=== PATIENT | female | born 1950 | race Caucasian/White ===

== ENCOUNTER 2018-11-03 13:10 | Inpatient (IN) ==
[2018-11-03] MEDS ORDERED: ACETAMINOPHEN 325 MG TABLET PO PRN (16:24)
[2018-11-03] MEDS ORDERED: diphenhydrAMINE 50 MG/1 ML VIAL IV PRN (16:24)
[2018-11-03] MEDS ORDERED: MORPHINE 4 MG/1 ML VIAL IV PRN (16:24)
[2018-11-03] MEDS ORDERED: SODIUM CHLORIDE 0.9% 1,000 ML IV PRN (16:24)
[2018-11-03] MEDS ORDERED: FUROSEMIDE 20 MG/2 ML VIAL IV SCH (16:30)
[2018-11-03] MEDS ORDERED: traZODone 50 MG TABLET PO PRN (16:39)
[2018-11-03] MEDS ORDERED: ZALEPLON 5 MG CAPSULE PO PRN (16:39)
[2018-11-03] MEDS: SODIUM CHLORIDE 0.9% 1,000 ML IV SCH (17:24)
[2018-11-03 18:44] LABS: Apearance,Urine CLEAR (Clear); Bilirubin,Urine Negative (Negative); Blood, Urine Negative (Negative); Glucose,Urine (UA) Negative (Negative); Ketones,Urine Negative (Negative); Mucus,Urine Occasional /LPF (Occasional); Nitrite,Urine Negative (Negative); Protein,Urine Negative; RBC,Urine <1 /HPF (0-4); Urine Color Straw (Yellow); Urine Specific Gravity 1.011 (1.001-1.035); Urine Urobilinogen < 2.0 EU/DL (0.2-1.0); WBC,Urine 1 /HPF (0-6)
[2018-11-03] MEDS: DOCUSATE SODIUM 100 MG CAPSULE PO SCH (20:45)
[2018-11-04 03:45] LABS: Basophils % 0.6 % (0.0-0.8); Eosinophils # 0.1 10*3/uL (0.0-0.87); Eosinophils % 1.8 % (0.00-10.9); Hemoglobin 7.5 GM/DL (12.0-16.0); Immature Granulocytes Absolute 0.07 #; Lymphocytes # 1.9 10*3/uL (1.4-4.0); Lymphocytes % 26.4 % (21.3-54.2); Mean Corpuscular HGB Conc 31.3 GM/DL (32-36); Mean Corpuscular Hemoglobin 28 PG (27-34); Mean Corpuscular Volume 89.2 FL (87-102); Mean Platelet Volume 8.9 FL (9.6-12.0); Monocytes # 0.5 10*3/uL (0.11-0.8); Monocytes % 7.4 % (1.7-12.7); Neutrophils # 4.6 10*3/uL (1.4-7.4); Neutrophils % 62.8 % (38.7-73.9); Platelet Count 232 T/CUMM (130-400); Red Blood Count 2.69 MC/CUMM (3.8-5.5); Red Cell Distribution Width 17.4 % (9.3-17.3); White Blood Count 7.3 T/CUMM (4-12)
[2018-11-04 04:15] LABS: Albumin 2.1 G/DL (3.4-5.0); Bilirubin,Total 0.5 MG/DL (0.2-1.0); Calcium 7.5 MG/DL (8.5-10.1); Folate 15.5 NG/ML (5.4-24.0); Osmolality,Calculated 275.7 MOS/KG (273-304); Risk Ratio 2.17; Thyroid Stimulating Hormone 1.07 uIU/ml (0.358-3.74)
[2018-11-04 04:21] LABS: Alanine Aminotransferase 11 U/L (13-56); Albumin 2.1 G/DL (3.4-5.0); Alkaline Phosphatase 45 U/L (45-117); Aspartate Amino Transferase 9 U/L (0-37); Bilirubin,Direct < 0.100 MG/DL (0.0-0.20); Bilirubin,Indirect 0.3 MG/DL (0.0-1.0); Bilirubin,Total < 0.39 MG/DL (0.2-1.0)
[2018-11-04 04:22] LABS: % Iron Saturation 4.1 % (18-50); Ferritin 12.2 ng/ml (8-252)
[2018-11-04] MEDS: SODIUM CHLORIDE 0.9% 1,000 ML IV SCH ×2 (06:00→16:53)
[2018-11-04] MEDS ORDERED: PROPOFOL 500 MG/50 ML BOTTLE IV ONE (09:00)
[2018-11-04] MEDS ORDERED: LIDOCAINE 2% 5 ML VIAL ONE (09:00)
[2018-11-04] MEDS ORDERED: PANTOPRAZOLE 40 MG VIAL IV SCH (09:00)
[2018-11-04] MEDS: DOCUSATE SODIUM 100 MG CAPSULE PO SCH ×2 (10:04→20:49)
[2018-11-04 11:09] LABS: Hematocrit 26.2 VOL% (35.7-47.0); Hemoglobin 8.3 GM/DL (12.0-16.0)
[2018-11-04 11:45] LABS: Calcium 7.8 MG/DL (8.5-10.1); Osmolality,Calculated 277.4 MOS/KG (273-304); Potassium 3.8 MMOL/L (3.5-5.1)
[2018-11-04 14:04] LABS: Cyclic Citrull Peptide Interp Negative
[2018-11-04] MEDS ORDERED: IRON SUCROSE 200 MG in SODIUM CHLORIDE 0.9% 100 ML IV ONE (16:00)
[2018-11-04 16:16] LABS: Hematocrit 26.2 VOL% (35.7-47.0); Hemoglobin 8.2 GM/DL (12.0-16.0)
[2018-11-04] MEDS: FERROUS SULFATE 325 MG TABLET PO SCH ×2 (16:52→20:49)
[2018-11-04 22:22] LABS: Hematocrit 25.6 VOL% (35.7-47.0); Hemoglobin 7.9 GM/DL (12.0-16.0)
[2018-11-05 05:54] LABS: Basophils % 0.5 % (0.0-0.8); Eosinophils # 0.2 10*3/uL (0.0-0.87); Eosinophils % 3.4 % (0.00-10.9); Hematocrit 26.1 VOL% (35.7-47.0); Hemoglobin 7.9 GM/DL (12.0-16.0); Immature Granulocytes % 0.5 %; Immature Granulocytes Absolute 0.03 #; Lymphocytes # 1.4 10*3/uL (1.4-4.0); Lymphocytes % 22.2 % (21.3-54.2); Mean Corpuscular HGB Conc 30.3 GM/DL (32-36); Mean Corpuscular Hemoglobin 28 PG (27-34); Mean Corpuscular Volume 91.3 FL (87-102); Mean Platelet Volume 9.2 FL (9.6-12.0); Monocytes # 0.5 10*3/uL (0.11-0.8); Monocytes % 8.4 % (1.7-12.7); NRBC # 0.02 10*3/uL; Neutrophils # 4.1 10*3/uL (1.4-7.4); Platelet Count 262 T/CUMM (130-400); Red Blood Count 2.86 MC/CUMM (3.8-5.5); Red Cell Distribution Width 18.1 % (9.3-17.3); White Blood Count 6.2 T/CUMM (4-12)
[2018-11-05] MEDS: SODIUM CHLORIDE 0.9% 1,000 ML IV SCH (05:59)
[2018-11-05 06:14] LABS: Albumin 2.2 G/DL (3.4-5.0); Bilirubin,Total 0.4 MG/DL (0.2-1.0); Calcium 7.7 MG/DL (8.5-10.1); Osmolality,Calculated 274.5 MOS/KG (273-304); Potassium 3.3 MMOL/L (3.5-5.1); Total Protein 5.1 G/DL (6.4-8.3)
[2018-11-05] MEDS ORDERED: PANTOPRAZOLE 40 MG TABLET PO SCH ×2 (09:00)
[2018-11-05] MEDS ORDERED: POTASSIUM CHLORIDE 20 MEQ/15 ML UDCUP PO SCH (09:00)
[2018-11-05] MEDS: FERROUS SULFATE 325 MG TABLET PO SCH (09:29)
[2018-11-05] MEDS: DOCUSATE SODIUM 100 MG CAPSULE PO SCH (09:29)
[2018-11-05 12:12] VITALS: BP 144/77
[2018-11-09 13:09] LABS: Double Stranded DNA Antibodies 62.9 IU/ML
== END 2018-11-05 12:30 | disposition home or self-care (01) | DRG 812 ==
LOC: SUATTDRO 15:30 → N.ICU 15:30 → N.5E 11-04 20:09
PROVIDERS: ADMIT Internal Medicine; ATTEND Internal Medicine

== ENCOUNTER 2019-10-03 22:32 | Inpatient (IN) ==
[2019-10-04] MEDS ORDERED: MORPHINE 4 MG/1 ML VIAL IV PRN (02:33)
[2019-10-04] MEDS ORDERED: ACETAMINOPHEN 325 MG TABLET PO PRN (02:33)
[2019-10-04] MEDS ORDERED: NICOTINE 21 MG/24 HR PATCH TRANSDERM PRN (02:33)
[2019-10-04 03:10] LABS: Basophils % 0.9 % (0.0-0.8); Eosinophils # 0.2 10*3/uL (0.0-0.87); Eosinophils % 4.7 % (0.00-10.9); Hematocrit 33.4 VOL% (35.7-47.0); Hemoglobin 10.7 GM/DL (12.0-16.0); Immature Granulocytes % 0.4 %; Immature Granulocytes Absolute 0.02 #; Lymphocytes % 21.7 % (21.3-54.2); Mean Platelet Volume 9.5 FL (9.6-12.0); Monocytes % 11.4 % (1.7-12.7); Neutrophils % 60.9 % (38.7-73.9); Platelet Count 260 T/CUMM (130-400); Red Blood Count 3.59 MC/CUMM (3.8-5.5); Red Cell Distribution Width 16.9 % (9.3-17.3); White Blood Count 4.7 T/CUMM (4-12)
[2019-10-04 03:33] LABS: Albumin 2.2 G/DL (3.4-5.0); Bilirubin,Total 0.4 MG/DL (0.2-1.0); Calcium 7.8 MG/DL (8.5-10.1); Osmolality,Calculated 275.4 MOS/KG (273-304)
[2019-10-04 03:40] LABS: Risk Ratio 2.12; Thyroid Stimulating Hormone 1.62 uIU/ml (0.358-3.74); VLDL CHOLESTEROL 15.6 MG/DL
[2019-10-04] MEDS: PIPERACILLIN/TAZOBACTAM 3,375 MG in SODIUM CHLORIDE 0.9% 100 ML IV SCH ×3 (03:44→18:55)
[2019-10-04] MEDS: PANTOPRAZOLE 40 MG VIAL IV SCH ×4 (03:45→20:41)
[2019-10-04] MEDS: POTASSIUM CHLORIDE RIDER 10 MEQ in PREMIX 1 EACH IV PRN ×5 (04:16→22:00)
[2019-10-04 04:27] LABS: Sedimentation Rate-Westergren 63 MM/HR (0-30)
[2019-10-04 05:11] LABS: Anisocytosis 1+
[2019-10-04 05:12] LABS: Microcytosis Slight; Platelet Estimate Normal; Polychromasia Few
[2019-10-04 05:13] LABS: Ovalocytes Slight
[2019-10-04 06:07] LABS: Folate 20.9 NG/ML (5.4-24.0); Vitamin B12 > 2000 PG/ML (211-911)
[2019-10-04] MEDS: ALBUTEROL/IPRATROPIUM 3 ML NEB RESP TX SCH ×3 (08:00→19:18)
[2019-10-04 08:48] LABS: Hemoglobin A1 (Alkaline) 97.4 % (96.5-98.5); Hemoglobin A2 (Alkaline) 2.6 % (1.5-3.5)
[2019-10-04 15:02] LABS: Calcium 8.3 MG/DL (8.5-10.1); Osmolality,Calculated 270.7 MOS/KG (273-304)
[2019-10-04] MEDS: traZODone 50 MG TABLET PO SCH (21:50)
[2019-10-05] MEDS: ALBUTEROL/IPRATROPIUM 3 ML NEB RESP TX SCH ×4 (00:39→20:46)
[2019-10-05] MEDS: PIPERACILLIN/TAZOBACTAM 3,375 MG in SODIUM CHLORIDE 0.9% 100 ML IV SCH ×3 (04:18→18:38)
[2019-10-05] MEDS: ONDANSETRON 4 MG/2 ML VIAL IV PRN ×2 (04:26→07:47)
[2019-10-05 04:54] LABS: Basophils # 0.1 10*3/uL (0.0-0.2); Basophils % 1.5 % (0.0-0.8); Eosinophils # 0.3 10*3/uL (0.0-0.87); Eosinophils % 7.4 % (0.00-10.9); Hematocrit 36.8 VOL% (35.7-47.0); Hemoglobin 11.6 GM/DL (12.0-16.0); Immature Granulocytes % 0.3 %; Immature Granulocytes Absolute 0.01 #; Lymphocytes # 1.1 10*3/uL (1.4-4.0); Mean Corpuscular HGB Conc 31.5 GM/DL (32-36); Mean Corpuscular Volume 93.6 FL (87-102); Mean Platelet Volume 9.5 FL (9.6-12.0); Monocytes % 12.8 % (1.7-12.7); Platelet Count 305 T/CUMM (130-400); Red Blood Count 3.93 MC/CUMM (3.8-5.5); Red Cell Distribution Width 16.4 % (9.3-17.3); White Blood Count 3.9 T/CUMM (4-12)
[2019-10-05 05:15] LABS: Band Neutrophils 1 % (0-10); Eosinophils 11 % (0-10); Lymphocytes 22 % (20-55); Segmented Neutrophils 56 % (50-85); Total Cells Counted 100
[2019-10-05 05:16] LABS: Atypical Lymphocytes Few; Hypochromasia Slight; Microcytosis 1+; Polychromasia Slight
[2019-10-05 05:30] LABS: Calcium 8.3 MG/DL (8.5-10.1); Osmolality,Calculated 274.4 MOS/KG (273-304)
[2019-10-05] MEDS ORDERED: METOPROLOL TARTRATE 5 MG/5 ML VIAL IV ONE (05:43)
[2019-10-05] MEDS: POTASSIUM CHLORIDE RIDER 10 MEQ in PREMIX 1 EACH IV PRN (06:00)
[2019-10-05 07:16] LABS: Apearance,Urine CLEAR (Clear); Bacteria,Urine Occasional /HPF (Few); Bilirubin,Urine Negative (Negative); Blood, Urine Negative (Negative); Glucose,Urine (UA) Negative (Negative); Ketones,Urine Negative (Negative); Mucus,Urine Occasional /LPF (Occasional); Nitrite,Urine Negative (Negative); Protein,Urine Negative; RBC,Urine 3 /HPF (0-4); Squamous Epithelial Cell,Urine Occasional /HPF (0-10); Urine Color Straw (Yellow); Urine Specific Gravity 1.011 (1.001-1.035); Urine Urobilinogen < 2.0 EU/DL (0.2-1.0); WBC,Urine 12 /HPF (0-6)
[2019-10-05] MEDS: PANTOPRAZOLE 40 MG VIAL IV SCH ×2 (07:45→21:15)
[2019-10-05] MEDS ORDERED: LACTATED RINGERS 1,000 ML IV SCH (08:00)
[2019-10-05] MEDS ORDERED: propofoL 200 MG/20 ML VIAL IV ONE (09:00)
[2019-10-05] MEDS ORDERED: LIDOCAINE 100 MG/5 ML SYRINGE ONE (09:00)
[2019-10-05] MEDS ORDERED: ONDANSETRON 4 MG/2 ML VIAL ONE (09:00)
[2019-10-05] MEDS: SOTALOL 80 MG TABLET PO SCH ×2 (16:34→21:15)
[2019-10-05] MEDS: traZODone 50 MG TABLET PO SCH (21:15)
[2019-10-06] MEDS: ALBUTEROL/IPRATROPIUM 3 ML NEB RESP TX SCH ×2 (02:43→07:18)
[2019-10-06] MEDS: PIPERACILLIN/TAZOBACTAM 3,375 MG in SODIUM CHLORIDE 0.9% 100 ML IV SCH (03:04)
[2019-10-06 06:36] LABS: Basophils % 0.9 % (0.0-0.8); Eosinophils # 0.3 10*3/uL (0.0-0.87); Eosinophils % 6.1 % (0.00-10.9); Hematocrit 36.5 VOL% (35.7-47.0); Hemoglobin 11.6 GM/DL (12.0-16.0); Immature Granulocytes % 0.2 %; Immature Granulocytes Absolute 0.01 #; Lymphocytes % 23.8 % (21.3-54.2); Mean Corpuscular HGB Conc 31.8 GM/DL (32-36); Mean Corpuscular Volume 93.6 FL (87-102); Mean Platelet Volume 9.4 FL (9.6-12.0); Monocytes % 11.2 % (1.7-12.7); Neutrophils % 57.8 % (38.7-73.9); Platelet Count 307 T/CUMM (130-400); Red Cell Distribution Width 16.6 % (9.3-17.3); White Blood Count 4.3 T/CUMM (4-12)
[2019-10-06 07:01] LABS: Calcium 8.1 MG/DL (8.5-10.1); Osmolality,Calculated 273.5 MOS/KG (273-304)
[2019-10-06 07:04] LABS: Hypochromasia 1+; Ovalocytes Slight; Platelet Estimate Adequate
[2019-10-06 07:05] LABS: Microcytosis 1+
[2019-10-06 08:07] VITALS: BP 132/84
[2019-10-06] MEDS: POTASSIUM CHLORIDE 20 MEQ TABLET PO PRN ×2 (09:24→11:44)
[2019-10-06] MEDS: SOTALOL 80 MG TABLET PO SCH (09:24)
[2019-10-06] MEDS: PANTOPRAZOLE 40 MG VIAL IV SCH (09:24)
== END 2019-10-06 12:10 | disposition home health service (06) | DRG 379 ==
LOC: N.TELES 23:54 → SUATTDRO 23:54 → N.TELES 10-04 01:57
PROVIDERS: ADMIT Internal Medicine; ATTEND Internal Medicine

== ENCOUNTER 2019-11-01 12:16 | Observation (INO) ==
[2019-11-01] MEDS ORDERED: ACETAMINOPHEN 325 MG TABLET PO PRN (16:42)
[2019-11-01] MEDS ORDERED: ONDANSETRON 4 MG/2 ML VIAL IV PRN (16:42)
[2019-11-01] MEDS ORDERED: ONDANSETRON 4 MG TABLET PO PRN (17:34)
[2019-11-01] MEDS ORDERED: MECLIZINE 25 MG TABLET PO PRN (17:34)
[2019-11-01] MEDS ORDERED: traZODone 50 MG TABLET PO PRN ×2 (17:40→21:00)
[2019-11-01] MEDS: CLINDAMYCIN INJ 600 MG in PREMIX 1 EACH IV SCH (18:34)
[2019-11-01] MEDS: ALBUTEROL 2.5 MG/3 ML NEB RESP TX SCH (19:26)
[2019-11-01] MEDS: SOTALOL 80 MG TABLET PO SCH (21:32)
[2019-11-01] MEDS: PANTOPRAZOLE 40 MG TABLET PO SCH (21:33)
[2019-11-01] MEDS: BENZONATATE 100 MG CAPSULE PO SCH (21:33)
[2019-11-01] MEDS: POTASSIUM CHLORIDE 20 MEQ/15 ML UDCUP PO SCH (21:36)
[2019-11-01] MEDS: ENOXAPARIN 30 MG/0.3 ML SYRINGE SUBCUT SCH (21:38)
[2019-11-02] MEDS: ALBUTEROL 2.5 MG/3 ML NEB RESP TX SCH ×4 (01:33→19:49)
[2019-11-02] MEDS: CLINDAMYCIN INJ 600 MG in PREMIX 1 EACH IV SCH ×3 (02:40→18:05)
[2019-11-02 05:30] LABS: Basophils % 0.9 % (0.0-0.8); Eosinophils # 0.4 10*3/uL (0.0-0.87); Hematocrit 33.7 VOL% (35.7-47.0); Hemoglobin 10.7 GM/DL (12.0-16.0); Immature Granulocytes % 0.5 %; Immature Granulocytes Absolute 0.02 #; Lymphocytes # 1.5 10*3/uL (1.4-4.0); Lymphocytes % 34.5 % (21.3-54.2); Mean Corpuscular HGB Conc 31.8 GM/DL (32-36); Mean Corpuscular Volume 98.5 FL (87-102); Mean Platelet Volume 9.6 FL (9.6-12.0); Monocytes % 9.3 % (1.7-12.7); Neutrophils % 44.8 % (38.7-73.9); Platelet Count 186 T/CUMM (130-400); Red Blood Count 3.42 MC/CUMM (3.8-5.5); Red Cell Distribution Width 16.3 % (9.3-17.3); White Blood Count 4.4 T/CUMM (4-12)
[2019-11-02 05:45] LABS: Calcium 8.6 MG/DL (8.5-10.1); Osmolality,Calculated 269.8 MOS/KG (273-304)
[2019-11-02] MEDS ORDERED: PANTOPRAZOLE 40 MG TABLET PO SCH (09:00)
[2019-11-02] MEDS ORDERED: REGADENOSON 0.4 MG/5 ML SYRINGE IV ONE (12:02)
[2019-11-02] MEDS: POTASSIUM CHLORIDE 20 MEQ/15 ML UDCUP PO SCH ×2 (12:24→21:49)
[2019-11-02] MEDS: IRON (CARBONYL)/VIT C/B12/FA TABLET PO SCH (12:25)
[2019-11-02] MEDS: VORTIOXETINE 20 MG PO SCH (12:25)
[2019-11-02] MEDS: SOTALOL 80 MG TABLET PO SCH ×2 (12:25→21:40)
[2019-11-02] MEDS: PANTOPRAZOLE 40 MG TABLET PO SCH ×2 (12:25→21:42)
[2019-11-02] MEDS: MULTIVITAMIN (PRENATAL) TABLET PO SCH (12:25)
[2019-11-02] MEDS: BENZONATATE 100 MG CAPSULE PO SCH ×3 (12:25→21:41)
[2019-11-02] MEDS: ENOXAPARIN 30 MG/0.3 ML SYRINGE SUBCUT SCH (21:49)
[2019-11-03] MEDS: ALBUTEROL 2.5 MG/3 ML NEB RESP TX SCH ×2 (00:02→07:05)
[2019-11-03] MEDS: CLINDAMYCIN INJ 600 MG in PREMIX 1 EACH IV SCH ×2 (02:17→09:57)
[2019-11-03 05:29] LABS: Basophils % 0.7 % (0.0-0.8); Eosinophils # 0.4 10*3/uL (0.0-0.87); Eosinophils % 8.7 % (0.00-10.9); Hematocrit 37.1 VOL% (35.7-47.0); Hemoglobin 12.2 GM/DL (12.0-16.0); Immature Granulocytes % 0.4 %; Immature Granulocytes Absolute 0.02 #; Lymphocytes # 1.5 10*3/uL (1.4-4.0); Lymphocytes % 33.6 % (21.3-54.2); Mean Corpuscular HGB Conc 32.9 GM/DL (32-36); Mean Corpuscular Volume 95.4 FL (87-102); Mean Platelet Volume 9.4 FL (9.6-12.0); Monocytes % 11.1 % (1.7-12.7); Neutrophils % 45.5 % (38.7-73.9); Platelet Count 222 T/CUMM (130-400); Red Blood Count 3.89 MC/CUMM (3.8-5.5); Red Cell Distribution Width 16.4 % (9.3-17.3); White Blood Count 4.6 T/CUMM (4-12)
[2019-11-03 05:59] LABS: Calcium 9.2 MG/DL (8.5-10.1); Osmolality,Calculated 270.8 MOS/KG (273-304)
[2019-11-03] MEDS: IRON (CARBONYL)/VIT C/B12/FA TABLET PO SCH (09:56)
[2019-11-03] MEDS: SOTALOL 80 MG TABLET PO SCH (09:56)
[2019-11-03] MEDS: PANTOPRAZOLE 40 MG TABLET PO SCH (09:56)
[2019-11-03] MEDS: MULTIVITAMIN (PRENATAL) TABLET PO SCH (09:56)
[2019-11-03] MEDS: POTASSIUM CHLORIDE 20 MEQ/15 ML UDCUP PO SCH (09:57)
[2019-11-03] MEDS: BENZONATATE 100 MG CAPSULE PO SCH (09:57)
[2019-11-03] MEDS: VORTIOXETINE 20 MG PO SCH (09:58)
[2019-11-03 11:20] VITALS: BP 130/86
== END 2019-11-03 12:40 | disposition home or self-care (01) ==
LOC: INTOOBSV 15:59 → N.TELES 15:59
PROVIDERS: ADMIT Internal Medicine; ATTEND Internal Medicine